=== PATIENT | male | born 1945 | race Caucasian/White ===

== ENCOUNTER 2019-10-15 12:30 | Inpatient (IN) | payer MEDICARE, OTHER ==
[2019-10-15] MEDS ORDERED: SODIUM CHLORIDE 0.9% 1,000 ML IV ONE (12:57)
--- NOTE | 2019-10-15 13:12 | ED ---
General Adult HPI - General Chief complaint: Psychiatric Symptoms Stated complaint: Mental Health Time Seen by Provider: 10/15/19 12:35 Source: patient, EMS, RN notes reviewed, old records reviewed Mode of arrival: EMS Limitations: altered mental status - History of Present Illness Initial comments: This is a 74-year-old male who is brought in by police because he is acting psychotic. Patient is babbling and not making any sense. Patient did flag so meone down on the street and told he had no food but he was unable to verbalize at the police because he is just babbling and not making any sense. I'm unable to get any history from the patient and again the police say that when they picked him up until he got here he is just been completed words salad and not making any sense and not answering any questions accurately. Patient does not have any obvious injuries. - Related Data Home Medications Medication Instructions Recorded Confirmed No Known Home Medications 10/15/19 10/15/19 Allergies Allergy/AdvReac Type Severity Reaction Status Date / Time Unable to Assess Allergy Verified 10/15/19 17:44 Review of Systems ROS Statement: Those systems with pertinent positive or pertinent negative responses have been documented in the HPI. ROS Other: All systems not noted in ROS Statement are negative. Past Medical History Past Medical History: No Reported History History of Any Multi-Drug Resistant Organisms: None Reported Past Surgical History: No Surgical Hx Reported Smoking Status: Current every day smoker Past Alcohol Use History: None Reported Past Drug Use History: None Reported General Exam - General Exam Comments Initial Comments: GENERAL: Patient is well-developed and well-nourished. Patient is nontoxic and well- hydrated and is in no acute distress. ENT: Neck is soft and supple. No significant lymphadenopathy is noted. Oropharynx is clear. Moist mucous membranes. Neck has full range of motion without eliciting any pain. EYES: The sclera were anicteric and conjunctiva were pink and moist. Extraocular movements were intact and pupils were equal round and reactive to light. Eyelids were unremarkable. PULMONARY: Unlabored respirations. Good breath sounds bilaterally. No audible rales rhonchi or wheezing was noted. CARDIOVASCULAR: There is a regular rate and rhythm without any murmurs gallops or rubs. ABDOMEN: Soft and nontender with normal bowel sounds. No palpable organomegaly was noted. There is no palpable pulsatile mass. SKIN: Skin is clear with no lesions or rashes and otherwise unremarkable. NEUROLOGIC: Patient is alert and oriented x3. Cranial nerves II through XII are grossly intact. Motor and sensory are also intact. Normal speech, volume and content. Symmetrical smile. MUSCULOSKELETAL: Normal extremities with adequate strength and full range of motion. No lower extremity swelling or edema. No calf tenderness. LYMPHATICS: No significant lymphadenopathy is noted PSYCHIATRIC: Patient has complete words felt not making any sense and not even putting together full sentences. Patient is also hyper verbal Limitations: altered mental status Course Vital Signs 10/15/19 10/15/19 10/15/19 12:35 16:21 17:55 Temperature 98.2 F Pulse Rate 90 86 82 Respiratory 18 16 18 Rate Blood Pressure 158/100 148/78 136/87 O2 Sat by Pulse 96 98 98 Oximetry Medical Decision Making - Medical Decision Making EKG shows sinus rhythm with occasional PAC at 77 bpm AR interval is 146 dresses 82 QT interval 442 QTC is 500. Patient's EKG shows no ST segment elevation or depression. EPS evaluated the patient and determined the patient needed to be admitted for psychiatric reasons. Patient will be transferred to to an accepting psychiatric facility - Lab Data Result diagrams: 10/15/19 13:17 10/15/19 13:17 Lab Results 10/15/19 10/15/19 10/15/19 Range/Units 13:02 13:17 13:17 WBC 9.4 (3.8-10.6) k/uL RBC 5.35 (4.30-5.90) m/uL Hgb 16.6 (13.0-17.5) gm/dL Hct 49.5 (39.0-53.0) % MCV 92.6 (80.0-100.0) fL MCH 31.1 (25.0-35.0) pg MCHC 33.5 (31.0-37.0) g/dL RDW 13.2 (11.5-15.5) % Plt Count 294 (150-450) k/uL Neutrophils % 75 % Lymphocytes % 17 % Monocytes % 6 % Eosinophils % 1 % Basophils % 1 % Neutrophils # 7.0 (1.3-7.7) k/uL Lymphocytes # 1.5 (1.0-4.8) k/uL Monocytes # 0.5 (0-1.0) k/uL Eosinophils # 0.1 (0-0.7) k/uL Basophils # 0.1 (0-0.2) k/uL PT 11.1 (9.0-12.0) sec INR 1.1 (<1.2) APTT 22.2 (22.0-30.0) sec Sodium (137-145) mmol/L Potassium (3.5-5.1) mmol/L Chloride (98-107) mmol/L Carbon Dioxide (22-30) mmol/L Anion Gap mmol/L BUN (9-20) mg/dL Creatinine (0.66-1.25) mg/dL Est GFR (CKD-EPI)AfAm (>60 ml/min/1.73 sqM) Est GFR (CKD-EPI)NonAf (>60 ml/min/1.73 sqM) Glucose (74-99) mg/dL Lactic Ac Sepsis Rflx Plasma Lactic Acid Sedrick 3.1 H* (0.7-2.0) mmol/L Calcium (8.4-10.2) mg/dL Total Bilirubin (0.2-1.3) mg/dL AST (17-59) U/L ALT (4-49) U/L Alkaline Phosphatase (38-126) U/L Troponin I (0.000-0.034) ng/mL Total Protein (6.3-8.2) g/dL Albumin (3.5-5.0) g/dL Serum Alcohol mg/dL 10/15/19 10/15/19 10/15/19 Range/Units 13:17 13:17 13:53 WBC (3.8-10.6) k/uL RBC (4.30-5.90) m/uL Hgb (13.0-17.5) gm/dL Hct (39.0-53.0) % MCV (80.0-100.0) fL MCH (25.0-35.0) pg MCHC (31.0-37.0) g/dL RDW (11.5-15.5) % Plt Count (150-450) k/uL Neutrophils % % Lymphocytes % % Monocytes % % Eosinophils % % Basophils % % Neutrophils # (1.3-7.7) k/uL Lymphocytes # (1.0-4.8) k/uL Monocytes # (0-1.0) k/uL Eosinophils # (0-0.7) k/uL Basophils # (0-0.2) k/uL PT (9.0-12.0) sec INR (<1.2) APTT (22.0-30.0) sec Sodium 141 (137-145) mmol/L Potassium 4.6 (3.5-5.1) mmol/L Chloride 104 (98-107) mmol/L Carbon Dioxide 25 (22-30) mmol/L Anion Gap 12 mmol/L BUN 60 H (9-20) mg/dL Creatinine 1.74 H (0.66-1.25) mg/dL Est GFR (CKD-EPI)AfAm 44 (>60 ml/min/1.73 sqM) Est GFR (CKD-EPI)NonAf 38 (>60 ml/min/1.73 sqM) Glucose 113 H (74-99) mg/dL Lactic Ac Sepsis Rflx Y Plasma Lactic Acid Sedrick (0.7-2.0) mmol/L Calcium 10.6 H (8.4-10.2) mg/dL Total Bilirubin 1.5 H (0.2-1.3) mg/dL AST 39 (17-59) U/L ALT 24 (4-49) U/L Alkaline Phosphatase 67 (38-126) U/L Troponin I 0.029 (0.000-0.034) ng/mL Total Protein 7.5 (6.3-8.2) g/dL Albumin 4.7 (3.5-5.0) g/dL Serum Alcohol <10 mg/dL 10/15/19 Range/Units 16:43 WBC (3.8-10.6) k/uL RBC (4.30-5.90) m/uL Hgb (13.0-17.5) gm/dL Hct (39.0-53.0) % MCV (80.0-100.0) fL MCH (25.0-35.0) pg MCHC (31.0-37.0) g/dL RDW (11.5-15.5) % Plt Count (150-450) k/uL Neutrophils % % Lymphocytes % % Monocytes % % Eosinophils % % Basophils % % Neutrophils # (1.3-7.7) k/uL Lymphocytes # (1.0-4.8) k/uL Monocytes # (0-1.0) k/uL Eosinophils # (0-0.7) k/uL Basophils # (0-0.2) k/uL PT (9.0-12.0) sec INR (<1.2) APTT (22.0-30.0) sec Sodium (137-145) mmol/L Potassium (3.5-5.1) mmol/L Chloride (98-107) mmol/L Carbon Dioxide (22-30) mmol/L Anion Gap mmol/L BUN (9-20) mg/dL Creatinine (0.66-1.25) mg/dL Est GFR (CKD-EPI)AfAm (>60 ml/min/1.73 sqM) Est GFR (CKD-EPI)NonAf (>60 ml/min/1.73 sqM) Glucose (74-99) mg/dL Lactic Ac Sepsis Rflx Plasma Lactic Acid Sedrick 1.2 (0.7-2.0) mmol/L Calcium (8.4-10.2) mg/dL Total Bilirubin (0.2-1.3) mg/dL AST (17-59) U/L ALT (4-49) U/L Alkaline Phosphatase (38-126) U/L Troponin I (0.000-0.034) ng/mL Total Protein (6.3-8.2) g/dL Albumin (3.5-5.0) g/dL Serum Alcohol mg/dL Disposition Clinical Impression: Acute psychosis Disposition: TRANSFER TO PSYCH HOSP/UNIT Referrals: None,Stated [Primary Care Provider] - 1-2 days Time of Disposition: 21:27
[2019-10-15 13:43] LABS: Basophils # (A) 0.1 k/uL (0-0.2); Basophils % (A) 1 %; Eosinophils # (A) 0.1 k/uL (0-0.7); Eosinophils % (A) 1 %; HCT 49.5 % (39.0-53.0); HGB 16.6 gm/dL (13.0-17.5); Lymphocytes # (A) 1.5 k/uL (1.0-4.8); Lymphocytes % (A) 17 %; MCH 31.1 pg (25.0-35.0); MCHC 33.5 g/dL (31.0-37.0); MCV 92.6 fL (80.0-100.0); Mean Platelet Volume 8.7; Monocytes # (A) 0.5 k/uL (0-1.0); Monocytes % (A) 6 %; Neutrophils % (A) 75 %; Platelet Count 294 k/uL (150-450); RBC 5.35 m/uL (4.30-5.90); RDW 13.2 % (11.5-15.5); WBC 9.4 k/uL (3.8-10.6)
[2019-10-15 13:45] LABS: ALT 24 U/L (4-49); AST 39 U/L (17-59); African American GFR (CKD) 44 (>60 ml/min/1.73 sqM); Albumin 4.7 g/dL (3.5-5.0); Alkaline Phosphatase 67 U/L (38-126); Anion Gap 12 mmol/L; Blood Urea Nitrogen 60 mg/dL (9-20); Calcium 10.6 mg/dL (8.4-10.2); Carbon Dioxide 25 mmol/L (22-30); Chloride 104 mmol/L (98-107); Glucose 113 mg/dL (74-99); Non-African American GFR(CKD) 38 (>60 ml/min/1.73 sqM); Potassium 4.6 mmol/L (3.5-5.1); Sodium 141 mmol/L (137-145); Total Bilirubin 1.5 mg/dL (0.2-1.3); Total Protein 7.5 g/dL (6.3-8.2)
[2019-10-15] MEDS ORDERED: LORazepam 2 MG/ML INJ IV STA ×2 (13:54→17:44)
[2019-10-15 13:57] LABS: INR 1.1 (<1.2); Partial Thromboplastin Time 22.2 sec (22.0-30.0); Prothrombin Time 11.1 sec (9.0-12.0)
[2019-10-15 14:01] LABS: Alcohol <10 mg/dL
--- NOTE | 2019-10-15 14:59 | CT ---
EXAMINATION TYPE: CT brain wo con DATE OF EXAM: 10/15/2019 COMPARISON: None HISTORY: AMS CT DLP: 1261.4 mGycm Automated exposure control for dose reduction was used. FINDINGS: There is mild to moderate generalized degenerative change. Ventricular system compatible with the pat ient's age. No midline shift or mass effect. No acute hemorrhage. There are several metallic foreign bodies in the subcutaneous tissues likely chronic bilaterally. Calvarium intact. Sella turcica has a normal appearance. Craniocervical junction maintained. IMPRESSION: THERE IS DEGENERATIVE AND NONSPECIFIC WHITE MATTER CHANGES MOST TYPICAL REMOTE ISCHEMIA WITH NO EVIDE NCE OF ACUTE HEMORRHAGE OR MASS EFFECT. IF THERE IS CONCERN FOR ACUTE ISCHEMIA CORRELATE WITH MRI CLINICALLY WARRANTED.
--- NOTE | 2019-10-15 18:35 | XR ---
EXAMINATION: XR chest 2V DATE AND TIME: 10/15/2019 6:13 PM CLINICAL INDICATION: PHH; altered mental status TECHNIQUE: Departmental protocol COMPARISON: 07/28/2010 FINDINGS: The lungs are clear. The pleural spaces are negative. The cardiac silhouette is not enlarged. Tortuosity of the thoracic aorta is redemonstrated. The skeletal structures show significant pectus excavatum. No acute skeletal findings. The soft tissues are negative for acute findings. IMPRESSION: NO ACUTE PROCESS.
[2019-10-15 21:42] LABS: Appearance,Urine Clear (Clear); Bilirubin,Urine Negative (Negative); Blood,Urine Negative (Negative); Color,Urine Yellow; Glucose,Urine (UA) Negative (Negative); Ketones,Urine Trace (Negative); Leukocyte Esterase,Urine Negative (Negative); Nitrite,Urine Negative (Negative); PH, Urine 5.5 (5.0-8.0); Protein,Urine Trace (Negative); Specific Gravity,Urine 1.023 (1.001-1.035); Urobilinogen,Urine <2.0 mg/dL (<2.0)
[2019-10-15 21:59] LABS: Cocaine Screen,Urine Not Detected (NotDetected); Phencyclidine Screen,Urine Not Detected (NotDetected); Urn Cannabinoid Scrn Detected (NotDetected)
[2019-10-15 22:00] LABS: Amphetamine Screen,Urine Not Detected (NotDetected); Barbiturate Screen,Urine Not Detected (NotDetected); Benzodiazepines Screen,Urine Detected (NotDetected); Methadone Screen, Urine Not Detected (NotDetected); Opiate Screen,Urine Not Detected (NotDetected); Oxycodone Screen, Urine Not Detected (NotDetected); Tricyclic Antidepressant,Urine Not Detected (NotDetected)
[2019-10-16] MEDS ORDERED: LORazepam 1 MG TAB PO STA (01:21)
[2019-10-16] MEDS ORDERED: LORazepam 2 MG/ML INJ IV STA ×2 (01:23→09:57)
[2019-10-16] MEDS ORDERED: LORazepam 1 MG TAB PO PRN ×2 (09:05→20:31)
[2019-10-16] MEDS ORDERED: MAGNESIUM HYDROXIDE 2,400 MG/10 ML CUP PO PRN (20:31)
[2019-10-16] MEDS ORDERED: ACETAMINOPHEN TAB 325 MG TAB PO PRN (20:31)
[2019-10-16] MEDS ORDERED: MAG HYDROX/AL HYDROX/SIMETH 30 ML CUP PO PRN (20:31)
[2019-10-16] MEDS ORDERED: LORazepam 2 MG/ML INJ IM PRN (20:36)
[2019-10-16] MEDS ORDERED: ZIPRASIDONE 20 MG VIAL IM PRN (22:00)
--- NOTE | 2019-10-17 02:23 | P.MDCNMH ---
History of Present Illness H&P Date: 10/17/19 Chief Complaint: Medical evaluation 74-year-old male unable to provide any meaningful history at this time. Patient has been very tangential in his thoughts talking about irrelevant events. He doesn't answer my questions directly just keep telling irrelevant stories. Benjamin chavo he is able to deny any shortness of breath or chest pain. He claims to have no past medical history or any mental health issues In the ED blood work showed elevated creatinine unknown baseline. Elevated lactic acid corrected with IV fluid hydration. CT of the brain showed no acute abnormalities. Chest x-ray was unremarkable Review of Systems ROS unobtainable: due to mental status Past Medical History Past Medical History: No Reported History History of Any Multi-Drug Resistant Organisms: None Reported Past Surgical History: No Surgical Hx Reported Smoking Status: Current every day smoker Past Alcohol Use History: None Reported Past Drug Use History: None Reported Medications and Allergies Home Medications Medication Instructions Recorded Confirmed Type No Known Home Medications 10/15/19 10/15/19 History Allergies Allergy/AdvReac Type Severity Reaction Status Date / Time Unable to Assess Allergy Verified 10/15/19 17:44 Physical Exam Vitals: Vital Signs Temp Pulse Resp BP Pulse Ox 10/16/19 20:23 97.5 F L 84 18 143/94 99 10/16/19 11:33 71 18 123/97 97 Constitutional: No acute distress, conversant, pleasant Eyes: Anicteric sclerae, moist conjunctiva, Pupils equal round reactive to light ENMT: NC/AT Oropharynx clear, no erythema, or exudates Neck: Supple, FROM, no masses, or JVD No carotid bruits No thyromegaly Lungs: Clear to auscultation Clear to percussion Normal respiratory effort, no accessory muscle use Cardiovascular: Heart regular in rate and rhythm, No murmurs, gallops, or rubs No peripheral edema Abdominal: Soft Nontender, no guarding, rebound or rigidity Abdomen moving with respiration Skin: Normal temperature, tone, texture, turgor No induration No subcutaneous nodules No rash, lesions No ulcers Extremities: No digital cyanosis No clubbing Pedal pulses intact and symmetrical Radial pulses intact and symmetrical No calf tenderness Psychiatric: Alert and oriented to person, place and time Appropriate affect Poor judgement Neuro Muscles Strength 5/5 in all 4 extremities Sensation to light touch grossly present throughout Cranial nerves II-XII grossly intact No focal sensory deficits Lymphatics: no palpable cervical or supraclavicular , or inguinal lymph no carla Cranial Nerve Examination - Cranial Nerves Cranial Nerve II- Optic: Intact Cranial Nerve III- Oculomotor: Intact Cranial Nerve IV- Trochlear: Intact Cranial Nerve V- Trigeminal: Intact Cranial Nerve - Abducens: Intact Cranial Nerve VII- Facial: Intact Cranial Nerve VIII- Auditory: Intact Cranial Nerve IX- Glossopharyngeal: Intact Cranial Nerve X- Vagus: Intact Cranial Nerve XI- Accessory: Intact Cranial Nerve XII- Hypoglossal: Intact Results CBC & Chem 7: 10/15/19 13:17 10/15/19 13:17 Assessment and Plan Assessment: Acute psychosis Management per psych Thank you for allowing us to participate in the care of this patient. We will follow peripherally. Do not hesitate to contact us with questions. Someone can be reached from the [facility] hospitalist group at all hours of the day at [phone].
[2019-10-17] MEDS ORDERED: OLANZapine 10 MG VIAL IM STA (04:58)
[2019-10-17 05:39] LABS: Cholesterol 169 mg/dL (<200); HDL Cholesterol 58 mg/dL (40-60); LDL Cholesterol,Calculated 93 mg/dL (0-99); Triglycerides 91 mg/dL (<150)
[2019-10-17 12:24] LABS: Hemoglobin A1C 5.8 % (4.0-6.0)
[2019-10-17 12:42] VITALS: BMI 17.6
[2019-10-18] MEDS ORDERED: OLANZapine 10 MG VIAL IM STA ×2 (04:14→10:08)
[2019-10-18] MEDS ORDERED: OLANZapine 10 MG TAB PO SCH (10:30)
--- NOTE | 2019-10-18 11:15 | HP ---
HISTORY AND PHYSICAL DATE OF SERVICE: 10/17/2019 IDENTIFYING DATA: The patient is a 74-year-old male. Living circumstances are uncertain. He was brought to the emergency room by police. CHIEF COMPLAINT: The patient was unable to communicate anything intelligible. He talked with disorganized thoughts and phrases. HISTORY OF PRESENTING ILLNESS: The patient is the only source of information and is not able to provide any history. The note from the ED reflects his presentation currently and is noted as follows "this is a 74-year-old male who was brought in by police because he is acting psychotic. Patient is babbling and not making any sense. Patient did flag someone down on the street and told he had no food, but he was unable to verbalize at the police because he is just babbling and not making any sense. I am unable to get any history from the patient and again the police say that when they picked him up until he got here, he had just been complete word salad and not making any sense and not answering any questions accurately. The patient does not have any obvious injuries." When I interviewed the patient, he presented in the same way as noted above. He was not able to answer any questions. He would say individual words that were discernible, though he did not put words together in any meaningful way. He made references to the "supreme court" frequently. He was quite restless while I interviewed him. He was lying in bed during the interview. He has been on a 1 on 1. He is admitted for further evaluation. SUBSTANCE USE HISTORY: Urine drug screen is positive for methamphetamines, benzodiazepines and marijuana. PAST MEDICAL HISTORY: No information is available. FAMILY AND SOCIAL HISTORY: No information is available. MENTAL STATUS EXAM: Patient was lying in bed. He would pull his knees up and move about, mostly laying on 1 side, sometimes he would lift his head up. He talked a fair amount during the interview, though he would only say individual words that could be understood. He was not able to put words together in meaningful phrases or sentences. His affect was somewhat intense at times. He smiled though mostly he appeared to be dysphoric. He appeared significantly distressed. He had disorganized thoughts indicating significant psychotic symptoms. He was not able to be assessed for any risk of harm to self or others. Cognitive status was unable to be assessed. PHYSICAL EXAM: As per Dr. Leigh. ASSESSMENT: This 74-year-old male is diagnosed with psychosis. He may have significant issues related to methamphetamine. We have no history about recent events that led up to his admission nor any past psychiatric or general medical history. Strengths include that he appears to be generally alert and aware of his immediate environment. Weaknesses include disorganized thoughts and poor appetite. DIAGNOSIS: 1. Psychosis. 2. Methamphetamine abuse with recent use. RECOMMENDATIONS: Patient will be admitted for comprehensive medical psychiatric and psychosocial evaluation. Will make efforts to engage the patient in individual and group therapeutic activities. At this point, I will not start any regular psychotropic medications. We will continue with p.r.n. medications based on behavioral criteria. We will make efforts to gather further outside information as available. We will focus on stabilization and discharge planning. ROCHELLE / MORISN: [id number] /
--- NOTE | 2019-10-18 11:30 | PN ---
PROGRESS NOTE DATE OF SERVICE: 10/18/2019 HISTORY OF PRESENT ILLNESS: The patient was found in the community by police with disorganized behavior and thoughts. He was not able to provide any coherent information. INTERVAL HISTORY: The patient continues the same, mostly he has been in bed. He does make efforts to get up from time to time. He has been on 1 to 1. He has had poor p.o. intake. Staff noted that at times he has gotten up and urinated on the floor. He did not sleep last night. He continues to be disorganized in thought. His mood fluctuates, at times he might smile. He will seem to make an effort to communicate something though mostly his words are completely disorganized. He often repeats words or phrases such as "supreme court." He has been receiving p.r.n. Zyprexa with moderate benefits. MENTAL STATUS: Patient was in his room lying down. He gave fair eye contact. He moved about in bed. He made various comments which typically were 1 or 2 words that for the most part were disconnected. He could follow directions to a limited extent. He had a somewhat intense affect. He did smile occasionally. He appeared to be moderately distressed. His mood was dysphoric. He continues to show psychotic thoughts. ASSESSMENT: I will continue the current diagnosis and treatment plan. I will initiate Zyprexa 10 mg twice a day. The indication for Zyprexa is apparent psychosis, which may be secondary to methamphetamine abuse. We will continue to encourage p.o. intake of fluids and food. We will focus on stabilization and discharge planning. MMSTEFANIAL / MORISN: [id number] /
[2019-10-18] MEDS ORDERED: OLANZapine 10 MG VIAL IM PRN (17:23)
[2019-10-18] MEDS ORDERED: BENZTROPINE 2 MG/2 ML AMP IM ONE (17:33)
[2019-10-18] MEDS: OLANZapine 10 MG TAB PO SCH (21:32)
[2019-10-19] MEDS ORDERED: BENZTROPINE 2 MG/2 ML AMP IM PRN (02:00)
[2019-10-19] MEDS: OLANZapine 10 MG TAB PO SCH ×2 (09:50→09:56)
[2019-10-19] MEDS ORDERED: BENZTROPINE MESYLATE 0.5 MG TAB PO PRN (10:39)
--- NOTE | 2019-10-19 10:46 | P.PN ---
Progress Note - Text Progress Note Date: 10/19/19 Interval History: Patient was seen sitting on his bed this morning after completing his breakfast and was directable and agreeable to speak with administrative underwriter. Patient had his one-to-one sitter at his side for safety and all precaution. Patient appeared to be twisting his blanket in his hand while speaking with administrative underwriter. Patient was disorganized and bizarre and tangential/circumstantial when speaking with administrative underwriter. Patient had racing thoughts and was illogical at times. He spoke about getting in a "standoff" with the police and claims that he had a "gun to my head" and was forced to come into the hospital. Patient spoke negatively about medications and states that he does not want to take any and spoke negatively about haloperidol in particular. Patient was not able to give a good history for his symptoms and why he is in the hospital. He states that he was able to sleep last night. Patient was responding to internal stimuli. At this time patient denies any suicidal or homical ideations, intent or plan. Patient denies any auditory, visual hallucinations. He has multiple loosely formed delusions Mental Status Exam: General Appearance: Patient appears to be tall, frail stated age is alert, difficult to redirect and bizarre. Poor hygiene and grooming and disheveled hair. Behavior: Patient is calmly seated without any agitated behavior. Difficult to redirect and responding to internal stimuli. Speech: Patient's speech is fluent and nonpressured. Mood/Affect: Mood is "okay", affect is incongruent and constricted. Suicidality/Homicidality: Patient denies having any suicidal or homicidal ideation intent or plan. Perceptions: Patient denies any visual hallucinations and denies any auditory hallucinations Though content/process: Patient was bizarre, tangential/circumstantial and disorganized. Multiple delusions loosely formed. Memory and concentration: AOX2, believes that it is 09/26/2019, poor attention span and poor judgment. Judgment and insight: Poor Assessment Psychosis unspecified Methamphetamine abuse Plan: -Patient continues to meet criteria for inpatient psychiatric admission for symptom stabilization and safety. Patient has not signed medication consent and was placed in patient's chart. Petition and certificates were filed with the court and awaiting hearing date and deferral date. -Medications: Decreased Zyprexa to 5 mg twice a day for psychosis/mood stabilization. Patient is not taking this medication at this time. Cogentin 0.5 mg twice a day when necessary for EPS prophylaxis. We'll consider switching patient onto Haldol or Prolixin tomorrow if patient continues to refuse medications. -When necessary Zyprexa IM for agitation/aggression. -Chest x-ray on 10/14 showed no acute process, CT scan of brain on 10/14 showed degenerative and nonspecific white matter changes typical of remote ischemia no acute hemorrhage or mass effect. -Continue with one-to-one sitter for safety. -Repeat EKG as initial EKG showed prolonged QTc interval. -NRT - nicotine patch -SW on board for discharge planning. Encouraged the patient to participate in milieu.
[2019-10-19] MEDS: OLANZapine 5 MG TAB PO SCH (21:47)
[2019-10-20] MEDS ORDERED: WATER FOR INJECTION, STERILE 10 ML IV ONE (04:58)
[2019-10-20] MEDS: OLANZapine 10 MG VIAL IM PRN ×2 (05:05→13:52)
[2019-10-20 07:38] LABS: Basophils # (A) 0.1 k/uL (0-0.2); Basophils % (A) 1 %; Eosinophils # (A) 0.2 k/uL (0-0.7); Eosinophils % (A) 3 %; HCT 47.6 % (39.0-53.0); HGB 15.1 gm/dL (13.0-17.5); Lymphocytes # (A) 1.6 k/uL (1.0-4.8); Lymphocytes % (A) 27 %; MCH 29.2 pg (25.0-35.0); MCHC 31.8 g/dL (31.0-37.0); MCV 91.9 fL (80.0-100.0); Mean Platelet Volume 7.6; Monocytes # (A) 0.3 k/uL (0-1.0); Monocytes % (A) 5 %; Neutrophils # (A) 3.6 k/uL (1.3-7.7); Neutrophils % (A) 61 %; Platelet Count 182 k/uL (150-450); RBC 5.18 m/uL (4.30-5.90); RDW 13.4 % (11.5-15.5); WBC 5.9 k/uL (3.8-10.6)
[2019-10-20 07:48] LABS: ALT 30 U/L (4-49); AST 35 U/L (17-59); African American GFR (CKD) >90 (>60 ml/min/1.73 sqM); Albumin 3.4 g/dL (3.5-5.0); Alkaline Phosphatase 44 U/L (38-126); Anion Gap 5 mmol/L; Blood Urea Nitrogen 26 mg/dL (9-20); Calcium 9.2 mg/dL (8.4-10.2); Carbon Dioxide 29 mmol/L (22-30); Chloride 104 mmol/L (98-107); Glucose 89 mg/dL (74-99); Non-African American GFR(CKD) >90 (>60 ml/min/1.73 sqM); Potassium 4.5 mmol/L (3.5-5.1); Sodium 138 mmol/L (137-145); Total Protein 5.8 g/dL (6.3-8.2)
[2019-10-20] MEDS: OLANZapine 5 MG TAB PO SCH (09:29)
--- NOTE | 2019-10-20 10:15 | P.PN ---
Progress Note - Text Progress Note Date: 10/20/19 Interval History: Patient was laying on his bed this morning and was directable and agreeable to speak with magazine writer. Patient had his one-to-one sitter at his side for safety and all precaution. Patient continues to be disorganized and bizarre and tangential/circumstantial when speaking with magazine writer. Patient was suspicious of magazine writer and asked him about his credentials and also claims that he is "blind in one eye" and was covering the other eye while speaking with magazine writer and acting bizarrely. Patient had racing thoughts and was illogical at times. He continues to speak negatively about medications and claimed that he does not want to take any medications at this time. Patient did not offer any overnight complaints and states that he slept well last night. Patient was responding to internal stimuli, was rambling during conversation. At this time patient denies any suicidal or homical ideations, intent or plan. Patient denies any auditory, visual hallucinations. He has multiple loosely formed delusions. According to nursing notes patient required a when necessary Zyprexa this morning for slapping at staff and taking off his clothes. Mental Status Exam: General Appearance: Patient appears to be tall, frail stated age is alert, difficult to redirect and bizarre. Poor hygiene and grooming and disheveled and long hair. Behavior: Patient is calmly seated without any agitated behavior. Difficult to redirect, responding to internal stimuli. Speech: Patient's speech is fluent and nonpressured. Mood/Affect: Mood is "ok", affect is incongruent and constricted. Suicidality/Homicidality: Patient denies having any suicidal or homicidal ideation intent or plan. Perceptions: Patient denies any visual hallucinations and denies any auditory hallucinations Though content/process: Patient was bizarre, tangential/circumstantial and disorganized. Multiple delusions loosely formed. Memory and concentration: AOX2, poor attention span and poor judgment. Judgment and insight: Poor Assessment Psychosis unspecified Methamphetamine abuse Plan: -Patient continues to meet criteria for inpatient psychiatric admission for symptom stabilization and safety. Patient has not signed medication consent and was placed in patient's chart. Patient has an active court order for treatment which expires 04/11/2020. -Medications: Changed medication to Haldol by mouth 3 mg twice a day for psychosis with Haldol IM as backup if patient refuses to take PO. Cogentin 0.5 mg twice a day when necessary for EPS prophylaxis. -When necessary Zyprexa IM for agitation/aggression. -Chest x-ray on 10/14 showed no acute process, CT scan of brain on 10/14 showed degenerative and nonspecific white matter changes typical of remote ischemia no acute hemorrhage or mass effect. -Continue with one-to-one sitter for safety. -Repeat EKG shows significant improvement in QTC interval at 422. -will attempt again today to obtain COVID-19 test. -NRT - nicotine patch -SW on board for discharge planning. Encouraged the patient to participate in milieu. Patient is on an active court order. [facility]
[2019-10-20] MEDS: haloperidoL 1 MG TAB PO SCH ×2 (10:36→21:53)
[2019-10-20] MEDS: HALOPERIDOL LACTATE 5 MG/ML 1 ML VIAL IM PRN (21:56)
[2019-10-21] MEDS: haloperidoL 1 MG TAB PO SCH ×2 (08:48→21:18)
[2019-10-21] MEDS: HALOPERIDOL LACTATE 5 MG/ML 1 ML VIAL IM PRN ×2 (09:51→21:21)
--- NOTE | 2019-10-21 10:21 | P.PN ---
Progress Note - Text Progress Note Date: 10/21/19 Interval History: Patient was sitting at the side of his bed this morning while eating breakfast and was directable and agreeable to speak with jingle writer. Patient had his one-to-one sitter at his side for safety and all precaution. Patient continues to be disorganized and bizarre during conversation. He is tangential/circumstantial when speaking with jingle writer and was illogical. He told the jingle writer to speak with his roommate instead of him. He also spoke about "booby traps" that he wanted to set for jingle writer when he noticed that jingle writer came into the room to speak with him. He continues to speak negatively about medications and stated that "it only helps the doctors not us". Patient is continuing to refuse by mouth medications and requiring IM meds. Patient did not offer any overnight complaints and states that he slept well last night. At this time patient denies any suicidal or homical ideations, intent or plan. Patient denies any auditory, visual hallucinations. He has multiple loosely formed delusions. Mental Status Exam: General Appearance: Patient appears to be tall, frail stated age is alert, difficult to redirect and bizarre. Poor hygiene and grooming and disheveled and long hair. Behavior: Patient is calmly seated without any agitated behavior. Responding to internal stimuli. Speech: Patient's speech is fluent and nonpressured. Mood/Affect: Mood is "alright", affect is incongruent and constricted. Suicidality/Homicidality: Patient denies having any suicidal or homicidal ideation intent or plan. Perceptions: Patient denies any visual hallucinations and denies any auditory hallucinations Though content/process: Patient was bizarre, tangential/circumstantial and disorganized. Multiple delusions loosely formed. Memory and concentration: AOX3, poor attention span and poor judgment. Judgment and insight: Poor Assessment Psychosis unspecified Methamphetamine abuse Plan: -Patient continues to meet criteria for inpatient psychiatric admission for symptom stabilization and safety. Patient has not signed medication consent and was placed in patient's chart. Patient has an active court order for treatment which expires 04/11/2020. -Medications: Continue with Haldol by mouth 3 mg twice a day for psychosis with Haldol IM as backup if patient refuses to take PO. Cogentin 0.5 mg twice a day when necessary for EPS prophylaxis. -When necessary Zyprexa IM for agitation/aggression. -Chest x-ray on 10/14 showed no acute process, CT scan of brain on 10/14 showed degenerative and nonspecific white matter changes typical of remote ischemia no acute hemorrhage or mass effect. -Continue with one-to-one sitter for safety. -EKG shows significant improvement in QTC interval at 422. -Awaiting results of COVID-19 test which was obtained. -NRT - nicotine patch -SW on board for discharge planning. Encouraged the patient to participate in milieu. Patient is on an active court order. [facility].
[2019-10-22] MEDS: haloperidoL 1 MG TAB PO SCH (09:13)
[2019-10-22] MEDS: HALOPERIDOL LACTATE 5 MG/ML 1 ML VIAL IM PRN ×2 (09:17→22:17)
--- NOTE | 2019-10-22 11:24 | P.PN ---
Progress Note - Text Progress Note Date: 10/22/19 Interval History: Patient was laying down in his bed this morning after eating breakfast and susan eared to be sleeping however patient was able to awaken and was agreeable to speak with advertising copywriter. Patient today continues to have disorganized speech and difficult to comprehend at times. Patient had his one-to-one sitter at his side for safety and all precaution. Patient continues to be disorganized and bizarre during conversation however appeared to be mildly improved in terms of his behavior and impulsivity. He is tangential/circumstantial and often rambles illogically. He continues to speak about his roommate and negatively about his medications and continues to refuse by mouth meds. He continues to state that he does not know who advertising copywriter is an asked about his qualifications. Patient did not offer any overnight complaints and states that he slept well last night. He states that he ate his breakfast well. At this time patient denies any suicidal or homical ideations, intent or plan. Patient denies any auditory, visual hallucinations. He has multiple loosely formed delusions. Mental Status Exam: General Appearance: Patient appears to be tall, frail stated age is alert, more directable today and bizarre. Improving hygiene and grooming and disheveled and long hair. Behavior: Patient is calmly seated without any agitated behavior. Speech: Patient's speech is fluent and nonpressured. Mood/Affect: Mood is "ok", affect is incongruent and constricted. Suicidality/Homicidality: Patient denies having any suicidal or homicidal ideation intent or plan. Perceptions: Patient denies any visual hallucinations and denies any auditory hallucinations Though content/process: Patient was bizarre, tangential/circumstantial and disorganized, mildly improved. Multiple delusions loosely formed. Memory and concentration: AOX3, poor attention span and poor judgment. Judgment and insight: Poor, improving mildly Assessment Psychosis unspecified Methamphetamine abuse Plan: -Patient continues to meet criteria for inpatient psychiatric admission for symptom stabilization and safety. Patient has not signed medication consent and was placed in patient's chart. Patient has an active court order for treatment which expires 04/11/2020. -Medications: Increased Haldol by mouth 4 mg twice a day for psychosis with Haldol IM as backup if patient refuses to take PO. Cogentin 0.5 mg twice a day when necessary for EPS prophylaxis. Added amlodipine 5 mg daily for hypertension. -When necessary Zyprexa IM for agitation/aggression. -Chest x-ray on 10/14 showed no acute process, CT scan of brain on 10/14 showed degenerative and nonspecific white matter changes typical of remote ischemia no acute hemorrhage or mass effect. -Continue with one-to-one sitter for safety. -EKG shows significant improvement in QTC interval at 422. -Awaiting results of COVID-19 test which was obtained. -NRT - nicotine patch -SW on board for discharge planning. Encouraged the patient to participate in milieu. Patient is on an active court order. [facility] test comes [facility].
[2019-10-22] MEDS: amLODIPine 5 MG TAB PO SCH (12:28)
[2019-10-23 05:17] VITALS: BP 148/93; PULSE 60; RESP 16
[2019-10-23] MEDS: amLODIPine 5 MG TAB PO SCH (08:28)
[2019-10-23] MEDS: HALOPERIDOL LACTATE 5 MG/ML 1 ML VIAL IM PRN (10:16)
--- NOTE | 2019-10-23 10:27 | P.PN ---
Progress Note - Text Progress Note Date: 10/23/19 Interval History: Patient was laying down in his bed this morning after eating breakfast and susan eared to be focused on twisting his hospital gown with his hands. Patient appeared to be alert however was fairly distracted. Patient did engagement minimally with freelance copywriter today and for the most part had disorganized speech and was mainly unintelligible. Patient was difficult to comprehend at times. He had a one-to-one sitter at his side for safety. According to sitter patient ate his breakfast well and was guided safely to the dining vargas and showed improvement in his behavior and impulsivity. He is tangential/circumstantial and often rambles illogically. When asked today about his medications patient did not respond as he was preoccupied with his hospital gown. Patient did not offer any overnight complaints and states that he slept ok last night. He continues to have poor hygiene and grooming and long disheveled hair. At this time patient denies any suicidal or homical ideations, intent or plan. Patient denies any auditory, visual hallucinations. He has multiple loosely formed delusions. Mental Status Exam: General Appearance: Patient appears to be tall, frail stated age is alert, difficult to redirect today and bizarre. Poor hygiene and grooming and disheveled and long hair. Behavior: Patient is calmly seated without any agitated behavior. Patient was twisting his hospital gown in his bed. Speech: Patient's speech is fluent and nonpressured. Disorganized at times and unintelligible. Mood/Affect: Mood is "good", affect is incongruent and constricted. Suicidality/Homicidality: Patient denies having any suicidal or homicidal ideation intent or plan. Perceptions: Patient denies any visual hallucinations and denies any auditory hallucinations Though content/process: Patient was bizarre, tangential/circumstantial and disorganized, mildly improved. Multiple delusions loosely formed. Memory and concentration: AOX2-3, poor attention span and poor judgment. Judgment and insight: Poor Assessment Psychosis unspecified Methamphetamine abuse Plan: -Patient continues to meet criteria for inpatient psychiatric admission for symptom stabilization and safety. Patient has not signed medication consent and was placed in patient's chart. Patient has an active court order for treatment which expires 04/11/2020. -Medications: Continue with Haldol by mouth 4 mg twice a day for psychosis with Haldol IM as backup if patient refuses to take PO. Cogentin 0.5 mg twice a day when necessary for EPS prophylaxis. Continue with amlodipine 5 mg daily for hypertension. -When necessary Zyprexa IM for agitation/aggression. -Chest x-ray on 10/14 showed no acute process, CT scan of brain on 10/14 showed degenerative and nonspecific white matter changes typical of remote ischemia no acute hemorrhage or mass effect. -Continue with one-to-one sitter for safety. -EKG shows significant improvement in QTC interval at 422. -COVID-19 test - negative. -NRT - nicotine patch -SW on board for discharge planning. Encouraged the patient to participate in milieu. Patient is on an active court order. [facility]
[2019-10-23] MEDS ORDERED: OLANZapine 5 MG TAB PO ONE (11:38)
[2019-10-23 12:45] VITALS: TEMP 97.6
== END 2019-10-23 18:28 | disposition other institution (70) | DRG 885 ==
LOC: EC 12:30 → 3MHU 10-16 20:47
PROVIDERS: ADMIT Psychiatry & Neurology Psychiatry; ATTEND Psychiatry & Neurology Psychiatry
DX: F23 Brief psychotic disorder (principal); F15.10 Other stimulant abuse, uncomplicated; F17.200 Nicotine dependence, unspecified, uncomplicated; F39 Unspecified mood [affective] disorder; Z11.59 Encounter for screening for other viral diseases
CPT/HCPCS: 36415; 70450; 71046; 80053; 80061; 80306; 80320; 81003; 83036; 83605; 84484; 85025; 85610; 85730; 93005; 96361; 96374; 96376; 99285